=== PATIENT | female | born 1945 | race Caucasian/White ===

== ENCOUNTER → 2017-04-11 | Outpatient (CLI) | payer MEDICARE, BC ==
[2012-03-08 09:56] VITALS: BP 132/71
[~2017-04-11] MED LIST: CALCIUM 500 + D1 TAB PO; CARDI-OMEGA1000 MG PO; DUO-KAPS1 CAP PO; FOSAMAX5 MG PO; ST. JOSEPH81 M2 PO
== END ==
LOC: MAMMO 11:16 → RAD 11:30 → MAMMO 11:30
DX: Z12.31 Encounter for screening mammogram for malignant neoplasm of breast (principal)
CPT/HCPCS: G0202

== ENCOUNTER → 2017-04-18 | Outpatient (CLI) | payer MEDICARE, BC ==
[2012-03-08 09:56] VITALS: BP 132/71
[2017-04-18 10:12] LABS: BASO # 0.1 (0.02-0.10); EOS # 0.1 (0.04-0.40); HEMATOCRIT 39.5 % (37.0-47.0); HEMOGLOBIN 12.8 g/dL (12.5-16.0); LYMPH# 2.1 (1.50-4.00); MEAN CELL VOLUME 92 fl (78-100); MEAN CORPUSCULAR HEMOGLOBIN 30 pg (27-31); MEAN CORPUSCULAR HGB CONC 32 g/dL (33-37); MEAN PLATELET VOLUME 8.1 fl (7.4-10.4); MONO # 0.4 (0.20-0.80); NEU # 2.9 (1.40-6.50); PLATELET COUNT 373 K/mm3 (130-400); RED BLOOD COUNT 4.29 M/mm3 (4.10-5.30); RED CELL DISTRIBUTION WIDTH 13.6 % (11.5-14.5); WHITE BLOOD COUNT 5.5 K/mm3 (4.8-10.8)
[2017-04-18 10:30] LABS: ALBUMIN 4.4 g/dL (3.5-5.0); BUN/CREATININE RATIO 19.3 (6.0-26.0); CALCIUM 10.1 mg/dL (8.4-10.2); POTASSIUM 3.9 mmol/L (3.6-5.0); TOTAL BILIRUBIN 1.2 mg/dL (0.2-1.3)
== END ==
LOC: LAB 09:55
PROVIDERS: Nurse Practitioner Family
DX: R73.01 Impaired fasting glucose (principal); Z13.220 Encounter for screening for lipoid disorders; M81.0 Age-related osteoporosis without current pathological fracture; M19.049 Primary osteoarthritis, unspecified hand

== ENCOUNTER → 2017-09-19 | Outpatient (CLI) | payer MEDICARE, BC ==
[2012-03-08 09:56] VITALS: BP 132/71
== END ==
LOC: MAMMO 13:31
DX: Z13.820 Encounter for screening for osteoporosis (principal); M81.0 Age-related osteoporosis without current pathological fracture; R73.01 Impaired fasting glucose; M19.049 Primary osteoarthritis, unspecified hand

== ENCOUNTER → 2018-07-17 | Outpatient (CLI) | payer MEDICARE, BC ==
[2012-03-08 09:56] VITALS: BP 132/71
[2018-07-17 09:13] LABS: BASO # 0.1 (0.02-0.10); EOS # 0.1 (0.04-0.40); EOS % 1.5 % (1.0-5.0); HEMATOCRIT 39.9 % (37.0-47.0); HEMOGLOBIN 13.1 g/dL (12.5-16.0); LYMPH# 2.5 (1.50-4.00); MEAN CELL VOLUME 92 fl (78-100); MEAN CORPUSCULAR HEMOGLOBIN 30 pg (27-31); MEAN CORPUSCULAR HGB CONC 33 g/dL (33-37); MEAN PLATELET VOLUME 8.4 fl (7.4-10.4); MONO # 0.4 (0.20-0.80); NEU # 3.6 (1.40-6.50); PLATELET COUNT 350 K/mm3 (130-400); RED BLOOD COUNT 4.36 M/mm3 (4.10-5.30); RED CELL DISTRIBUTION WIDTH 13.4 % (11.5-14.5); WHITE BLOOD COUNT 6.7 K/mm3 (4.8-10.8)
[2018-07-17 09:33] LABS: ALBUMIN 4.6 g/dL (3.5-5.0); CALCIUM 10.4 mg/dL (8.4-10.2); POTASSIUM 4.1 mmol/L (3.6-5.0); TOTAL BILIRUBIN 0.9 mg/dL (0.2-1.3)
== END ==
LOC: LAB 08:49
PROVIDERS: Physician Assistant
DX: Z00.00 Encounter for general adult medical examination without abnormal findings (principal); Z12.31 Encounter for screening mammogram for malignant neoplasm of breast; M79.642 Pain in left hand; E78.5 Hyperlipidemia, unspecified; R73.01 Impaired fasting glucose

== ENCOUNTER → 2018-07-17 | Outpatient (CLI) | payer MEDICARE, BC ==
[2012-03-08 09:56] VITALS: BP 132/71
== END ==
LOC: MAMMO 08:47
DX: Z12.31 Encounter for screening mammogram for malignant neoplasm of breast (principal); M79.642 Pain in left hand; J34.89 Other specified disorders of nose and nasal sinuses; M81.0 Age-related osteoporosis without current pathological fracture

== ENCOUNTER → 2018-07-24 | Outpatient (CLI) | payer MEDICARE, BC ==
[2012-03-08 09:56] VITALS: BP 132/71
== END ==
LOC: RAD 09:08
DX: M79.645 Pain in left finger(s) (principal)

== ENCOUNTER 2018-09-10 07:33 | Emergency (ER) | payer MEDICARE, BC ==
[~2018-09-10] VITALS: Ht 154.9 cm; Wt 50.0 kg
[~2018-09-10 07:33] MED LIST changes: +FOSAMAX 70MG TA70 MG PO; -FOSAMAX5 MG PO
[2018-09-10] MEDS ORDERED: ULTRAM50 M1 PO (08:15)
[2018-09-10] MEDS ORDERED: AUGMENTIN 875-1 EAC1 PO (08:15)
[2018-09-10 08:40] VITALS: BP 148/82
== END 2018-09-10 08:44 | disposition home or self-care (01) ==
LOC: ED 07:33
DX: S81.852A Open bite, left lower leg, initial encounter (principal); Z23 Encounter for immunization; Z79.82 Long term (current) use of aspirin; W55.51XA Bitten by raccoon, initial encounter; Y93.K1 Activity, walking an animal; Y92.009 Unspecified place in unspecified non-institutional (private) residence as the place of occurrence of the external cause
CPT/HCPCS: 90375; 90715

== ENCOUNTER 2018-09-24 09:53 | Outpatient (RCR) | payer MEDICARE, BC ==
[2018-09-13 10:22] VITALS: BP 123/68
[2018-09-17 10:27] VITALS: BP 139/64
[~2018-09-24] VITALS: Ht 154.9 cm; Wt 50.0 kg
[~2018-09-24 09:53] MED LIST changes: +AUGMENTIN 875-1 EAC1 PO; +ULTRAM50 M1 PO
[2018-09-24 10:12] VITALS: BP 144/80
== END 2018-09-24 10:17 | disposition home or self-care (01) ==
LOC: AMSURD 09:53
DX: Z20.3 Contact with and (suspected) exposure to rabies (principal)

== ENCOUNTER → 2019-09-16 | Outpatient (CLI) | payer MEDICARE, BC ==
[2019-09-16 11:12] LABS: EOS # 0.1 (0.04-0.40); EOS % 2.1 % (1.0-5.0); HEMATOCRIT 41.5 % (37.0-47.0); HEMOGLOBIN 13.6 g/dL (12.5-16.0); LYMPH# 2.5 (1.50-4.00); MEAN CELL VOLUME 90 fl (78-100); MEAN CORPUSCULAR HEMOGLOBIN 30 pg (27-31); MEAN CORPUSCULAR HGB CONC 33 g/dL (33-37); MEAN PLATELET VOLUME 8.2 fl (7.4-10.4); MONO # 0.4 (0.20-0.80); NEU # 3.2 (1.40-6.50); PLATELET COUNT 352 K/mm3 (130-400); RED BLOOD COUNT 4.61 M/mm3 (4.10-5.30); RED CELL DISTRIBUTION WIDTH 13.2 % (11.5-14.5); WHITE BLOOD COUNT 6.3 K/mm3 (4.8-10.8)
[2019-09-16 11:22] LABS: ALBUMIN 4.5 g/dL (3.4-4.8)
[2019-09-16 11:23] LABS: CALCIUM 10.5 mg/dL (8.3-10.5)
[2019-09-16 11:24] LABS: TOTAL PROTEIN 7.8 g/dL (6.2-8.1)
[2019-09-16 11:26] LABS: TOTAL BILIRUBIN 1.5 mg/dL (0.2-1.2)
== END ==
LOC: LAB 10:57
PROVIDERS: Physician Assistant
DX: Z00.00 Encounter for general adult medical examination without abnormal findings (principal); Z12.31 Encounter for screening mammogram for malignant neoplasm of breast; E78.5 Hyperlipidemia, unspecified; M19.049 Primary osteoarthritis, unspecified hand; K57.92 Diverticulitis of intestine, part unspecified, without perforation or abscess without bleeding; R73.01 Impaired fasting glucose; M81.0 Age-related osteoporosis without current pathological fracture

== ENCOUNTER → 2019-09-25 | Outpatient (CLI) | payer MEDICARE, BC | LOC: MAMMO 09:48 | DX: Z00.00 Encounter for general adult medical examination without abnormal findings (principal); Z12.31 Encounter for screening mammogram for malignant neoplasm of breast ==

== ENCOUNTER → 2020-10-05 | Outpatient (CLI) | payer MEDICARE, BC ==
[2020-10-05 11:23] LABS: BASO # 0.04 (0.02-0.10); EOS # 0.09 (0.04-0.40); EOS % 1.5 % (1.0-5.0); HEMATOCRIT 39.7 % (37.0-47.0); HEMOGLOBIN 13.1 g/dL (12.5-16.0); LYMPH# 2.01 (1.50-4.00); MEAN CELL VOLUME 89 fl (78-100); MEAN CORPUSCULAR HEMOGLOBIN 29 pg (27-31); MEAN CORPUSCULAR HGB CONC 33 g/dL (33-37); MEAN PLATELET VOLUME 8.1 fl (7.4-10.4); MONO # 0.34 (0.20-0.80); NEU # 3.41 (1.40-6.50); PLATELET COUNT 282 K/mm3 (130-400); RED BLOOD COUNT 4.47 M/mm3 (4.10-5.30); RED CELL DISTRIBUTION WIDTH 12.7 % (11.5-14.5); WHITE BLOOD COUNT 5.9 K/mm3 (4.8-10.8)
[2020-10-05 11:32] LABS: ALBUMIN 4.2 g/dL (3.4-4.8); POTASSIUM 3.7 mmol/L (3.5-5.1)
[2020-10-05 11:33] LABS: CALCIUM 9.8 mg/dL (8.3-10.5)
[2020-10-05 11:35] LABS: TOTAL PROTEIN 7.4 g/dL (6.2-8.1)
[2020-10-05 11:37] LABS: TOTAL BILIRUBIN 1.2 mg/dL (0.2-1.2)
== END ==
LOC: LAB 11:00
PROVIDERS: Physician Assistant
DX: Z00.00 Encounter for general adult medical examination without abnormal findings (principal); E78.5 Hyperlipidemia, unspecified; M81.0 Age-related osteoporosis without current pathological fracture

== ENCOUNTER → 2020-10-12 | Outpatient (CLI) | payer MEDICARE, BC | LOC: MAMMO 09:45 | DX: Z12.31 Encounter for screening mammogram for malignant neoplasm of breast (principal) ==

== ENCOUNTER → 2021-04-05 | Outpatient (CLI) | payer MEDICARE, BC ==
[2021-04-05 09:39] LABS: ALBUMIN 4.4 g/dL (3.4-4.8); POTASSIUM 3.8 mmol/L (3.5-5.1)
[2021-04-05 09:40] LABS: CALCIUM 10.3 mg/dL (8.3-10.5)
[2021-04-05 09:42] LABS: TOTAL PROTEIN 7.4 g/dL (6.2-8.1)
[2021-04-05 09:43] LABS: TOTAL BILIRUBIN 1.1 mg/dL (0.2-1.2)
== END ==
LOC: LAB 09:05
PROVIDERS: Family Medicine
DX: E78.5 Hyperlipidemia, unspecified (principal)

== ENCOUNTER → 2021-10-13 | Outpatient (CLI) | payer MEDICARE, BC | LOC: MAMMO 08:57 | DX: Z12.31 Encounter for screening mammogram for malignant neoplasm of breast (principal) ==

== ENCOUNTER → 2021-10-13 | Outpatient (CLI) | payer MEDICARE, BC | LOC: MAMMO 08:59 | DX: M81.0 Age-related osteoporosis without current pathological fracture (principal); M85.89 Other specified disorders of bone density and structure, multiple sites ==

== ENCOUNTER → 2021-10-20 | Outpatient (CLI) | payer MEDICARE, BC ==
[2021-10-20 10:05] LABS: BASO # 0.04 K/mm3 (0.02-0.10); EOS # 0.12 K/mm3 (0.04-0.40); EOS % 1.7 % (1.0-5.0); HEMATOCRIT 40.4 % (37.0-47.0); HEMOGLOBIN 13.2 g/dL (12.5-16.0); LYMPH# 2.91 K/mm3 (1.50-4.00); MEAN CELL VOLUME 90 fl (78-100); MEAN CORPUSCULAR HEMOGLOBIN 30 pg (27-31); MEAN CORPUSCULAR HGB CONC 33 g/dL (33-37); MEAN PLATELET VOLUME 8.3 fl (7.4-10.4); MONO # 0.45 K/mm3 (0.20-0.80); NEU # 3.64 K/mm3 (1.40-6.50); PLATELET COUNT 322 K/mm3 (130-400); RED BLOOD COUNT 4.47 M/mm3 (4.10-5.30); RED CELL DISTRIBUTION WIDTH 12.9 % (11.5-14.5); WHITE BLOOD COUNT 7.2 K/mm3 (4.8-10.8)
[2021-10-20 10:13] LABS: ALBUMIN 4.5 g/dL (3.4-4.8); POTASSIUM 4.1 mmol/L (3.5-5.1)
[2021-10-20 10:14] LABS: CALCIUM 10.5 mg/dL (8.3-10.5)
[2021-10-20 10:15] LABS: TOTAL PROTEIN 7.8 g/dL (6.2-8.1)
[2021-10-20 10:17] LABS: TOTAL BILIRUBIN 1.2 mg/dL (0.2-1.2)
== END ==
LOC: LAB 09:50
PROVIDERS: Physician Assistant
DX: Z00.00 Encounter for general adult medical examination without abnormal findings (principal); E78.5 Hyperlipidemia, unspecified; M81.0 Age-related osteoporosis without current pathological fracture; K90.9 Intestinal malabsorption, unspecified; R03.0 Elevated blood-pressure reading, without diagnosis of hypertension